=== PATIENT | female | born 1970 | race Caucasian/White ===

== ENCOUNTER 2024-09-22 20:36 | Emergency (ER) | payer MEDICARE, OTHER ==
[2024-09-22] MEDS ORDERED: HYDROcodone/Acetaminophen 10/325 mg Tablet ONE (21:33)
[2024-09-22 22:14] LABS: Hematocrit 27.5 % (34.9-44.5); Hemoglobin 9.1 g/dL (12.0-15.5)
== END 2024-09-22 22:59 | disposition home or self-care (01) ==
LOC: CSHERS 20:36
DX: M96.830 Postprocedural hemorrhage of a musculoskeletal structure following a musculoskeletal system procedure (principal); I10 Essential (primary) hypertension; E11.9 Type 2 diabetes mellitus without complications; F17.290 Nicotine dependence, other tobacco product, uncomplicated
CPT/HCPCS: 85014; 85018